=== PATIENT | female | born 1990 | race Caucasian/White ===

== ENCOUNTER 2017-04-03 08:50 | Emergency (ER) | payer OTHER ==
[~2017-04-03] VITALS: Ht 154.9 cm; Wt 72.6 kg
[~2017-04-03 08:50] MED LIST: ACETAMINOPHEN325 M1 PO; CLINDAMYCIN HC300 MG PO; FLOMAX0.4 MG PO; HYDROCODON-ACE1 EA14 PO; IRON18 MG PO; IRON55 MG PO; NAPROXEN500 MG PO; NORCO 5-325 TA1 EACH PO; PRENATAL TABLE1 EAC1 PO; PRENATAL-FOLIC1 EACH PO; PROMETHAZINE HC25 M1 PO; REGLAN10 MG PO; SEPTRA DS TABL1 EACH PO; ZOFRAN ODT4 MG SL
== END 2017-04-03 09:14 | disposition home or self-care (01) ==
LOC: ED 08:50
DX: Z00.8 Encounter for other general examination (principal)

== ENCOUNTER 2019-06-17 17:57 | Inpatient (IN) | payer OTHER ==
[~2019-06-17] VITALS: Ht 154.9 cm; Wt 94.0 kg
--- NOTE | 2019-06-18 09:58 | PR ---
[facility] [address] [facility] [place], [place] [address] Signed Progress Notes IP Datetime Report Generated by CPN: 06/18/2019 09:58 PROGRESS NOTES: [id number] Impression: Normal progression of labor Procedures: Artificial ROM Plan: Continue present management; Anticipate Vaginal Delivery VITAL SIGNS: [id number] Vital Signs: Reviewed; Within Normal Limits EXAM: [id number] Dilatation: 2.5 Effacement: 75 Station: -3 Uterine Contractions: every 2-3 minutes MEMBRANES: [id number] Membrane Status: Ruptured Amniotic Fluid Color: Clear ROM Note: AROM with large amount clear fluid Comments: Patient would like to get up and walk in a bit, probably want Epidural later Fetus A: [id number] FHR Baseline: 140 Variability: Moderate 6-25bpm Accelerations: 15X15 Presentation: Vertex Fetus B: [id number] Signing Physician: Maricruz Vang MD Copies: ~ *Electronically Signed* 06/18/19 0958 MARICRUZ VANG MD PATIENT NAME: LUIS PETE PROGRESS NOTE DATE OF : 89 PHYSICIAN: MARICRUZ VANG MD RPT #: [id number] REPORT IS CONFIDENTIAL AND NOT TO BE RELEASED WITHOUT AUTHORIZATION
--- NOTE | 2019-06-18 16:52 | PR ---
[facility] [address] [facility] [place], [place] [address] Signed Progress Notes IP Datetime Report Generated by CPN: 06/18/2019 16:52 PROGRESS NOTES: [id number] Impression: Slow Progression of Labor Procedures: Intrauterine Pressure Catheter; Scalp Electrode Plan: Continue present management; Augmentation VITAL SIGNS: [id number] Vital Signs: Reviewed; Within Normal Limits EXAM: [id number] Dilatation: 5.0 Effacement: 75 Station: -3 Uterine Contractions: every 2-4 minutes MEMBRANES: [id number] Membrane Status: Ruptured Amniotic Fluid Color: Clear ROM Note: AROM with large amount clear fluid Comments: Pitocin alreadly started for slow progress. Internal monitors applied sicne no change in past about 2 hours. Continue to increase Pitocin per protocol. Fetus A: [id number] FHR Baseline: 140 Variability: Moderate 6-25bpm Accelerations: 15X15 Presentation: Vertex Fetus B: [id number] Signing Physician: Maricruz Vang MD Copies: ~ *Electronically Signed* 06/18/19 1655 MARICRUZ VANG MD PATIENT NAME: JUAN RLUIS PROGRESS NOTE DATE OF : 89 PHYSICIAN: MARICRUZ VANG MD RPT #: [id number] REPORT IS CONFIDENTIAL AND NOT TO BE RELEASED WITHOUT AUTHORIZATION
--- NOTE | 2019-06-18 21:31 | PR ---
[facility] [address] [facility] [place], [place] [address] Signed Progress Notes IP Datetime Report Generated by CPN: 06/18/2019 21:31 PROGRESS NOTES: [id number] Impression: Normal progression of labor Procedures: Intrauterine Pressure Catheter; Scalp Electrode Plan: Continue present management; Anticipate Vaginal Delivery VITAL SIGNS: [id number] Vital Signs: Reviewed; Within Normal Limits EXAM: [id number] Dilatation: 9.5 Effacement: 100 Station: -2 Uterine Contractions: every 2 minutes MEMBRANES: [id number] Membrane Status: Ruptured Amniotic Fluid Color: Clear ROM Note: AROM with large amount clear fluid Comments: Just had Epidural redosed, so comfortable with contractions. Should be able to start pushing soon. Fetus A: [id number] FHR Baseline: 140 Variability: Moderate 6-25bpm Accelerations: 15X15 Presentation: Vertex Fetus B: [id number] Signing Physician: Eron Vang MD Copies: ~ *Electronically Signed* 06/18/192130 ERON VANG MD PATIENT NAME: JUAN RLUIS DURANT PROGRESS NOTE DATE OF : 89 PHYSICIAN: ERON VANG MD RPT #: [id number] REPORT IS CONFIDENTIAL AND NOT TO BE RELEASED WITHOUT AUTHORIZATION
--- NOTE | 2019-06-19 11:28 | PR ---
[facility] [address] [facility] [place] [address] Signed PP Progress Notes Datetime Report Generated by CPN: 06/19/2019 11:28 SUBJECTIVE: [id number] Pain: Within normal limits Nausea/Vomiting: Denies Vital Signs: [id number] Vital Signs: Reviewed; Within Normal Limits Notable Details: PP Hgb/Hct = 8.8/26.4 EXAM: [id number] Abdomen/Uterus: Normal Lochia: Normal Extremities: Normal IMPRESSION/PLAN/PROCEDURES: [id number] Impression: Normal progression Other Impression: PP Anemia Plan: Continue present management Procedures: None Progress Notes: Doing well, without complaint. Signing Physician: Maricruz Vang MD Copies: ~ *Electronically Signed* 06/19/19 1128 MARICRUZ VANG MD PATIENT NAME: LUIS PETE PROGRESS NOTE DATE OF : 89 PHYSICIAN: MARICRUZ VANG MD RPT #: [id number] REPORT IS CONFIDENTIAL AND NOT TO BE RELEASED WITHOUT AUTHORIZATION
--- NOTE | 2019-06-20 12:24 | PR ---
[facility] [address] [facility] [place], [place] [address] Signed PP Progress Notes Datetime Report Generated by CPN: 06/20/2019 12:24 SUBJECTIVE: [id number] Pain: Within normal limits Nausea/Vomiting: Denies Vital Signs: [id number] Vital Signs: Reviewed; Within Normal Limits Notable Details: PP Hgb/Hct = 8.8/26.4 EXAM: [id number] Abdomen/Uterus: Normal Lochia: Normal Extremities: Normal IMPRESSION/PLAN/PROCEDURES: [id number] Impression: Normal progression Other Impression: PP Anemia, Migraine WILKINSON Plan: Discharge Procedures: None Progress Notes: Doing well, had migraine WILKINSON earlier, not related to standing, moving, feeling better now, has Hx WILKINSON's. Ready to go home. Signing Physician: Maricruz Vang MD Copies: ~ *Electronically Signed* 06/20/19 1224 MARICRUZ VANG MD PATIENT NAME: LUIS PETE PROGRESS NOTE DATE OF : 89 PHYSICIAN: MARICRUZ VANG MD RPT #: [id number] REPORT IS CONFIDENTIAL AND NOT TO BE RELEASED WITHOUT AUTHORIZATION
== END 2019-06-20 15:05 | disposition home or self-care (01) | DRG 806 ==
LOC: FBC 06-18 00:02
PROVIDERS: ADMIT Obstetrics & Gynecology
PROC: 10E0XZZ Delivery of Products of Conception, External Approach (ICD-10-PCS; principal; 2019-06-18)
PROC: 0KQM0ZZ Repair Perineum Muscle, Open Approach (ICD-10-PCS; 2019-06-18)
PROC: 10H07YZ Insertion of Other Device into Products of Conception, Via Natural or Artificial Opening (ICD-10-PCS; 2019-06-18)
PROC: 10907ZC Drainage of Amniotic Fluid, Therapeutic from Products of Conception, Via Natural or Artificial Opening (ICD-10-PCS; 2019-06-18)
PROC: 00HU33Z Insertion of Infusion Device into Spinal Canal, Percutaneous Approach (ICD-10-PCS; 2019-06-18)
PROC: 3E0R3BZ Introduction of Anesthetic Agent into Spinal Canal, Percutaneous Approach (ICD-10-PCS; 2019-06-18)
DX: O12.04 Gestational edema, complicating childbirth (principal); O99.354 Diseases of the nervous system complicating childbirth; Z37.0 Single live birth; O69.0XX0 Labor and delivery complicated by prolapse of cord, not applicable or unspecified; Z3A.39 39 weeks gestation of pregnancy; O90.81 Anemia of the puerperium; D64.9 Anemia, unspecified; O21.0 Mild hyperemesis gravidarum; O70.1 Second degree perineal laceration during delivery; G43.909 Migraine, unspecified, not intractable, without status migrainosus; O67.8 Other intrapartum hemorrhage; Z86.19 Personal history of other infectious and parasitic diseases
CPT/HCPCS: 01960; 36415; 85027; J2405; J2590; J2795; J7121

== ENCOUNTER 2019-12-03 08:59 | Emergency (ER) | payer OTHER ==
[~2019-12-03] VITALS: Ht 154.9 cm; Wt 78.9 kg
[2019-12-03] MEDS ORDERED: IBU600 MG PO (09:19)
== END 2019-12-03 11:07 | disposition home or self-care (01) ==
LOC: ED 08:59
DX: S61.511A Laceration without foreign body of right wrist, initial encounter (principal); S61.412A Laceration without foreign body of left hand, initial encounter; F41.9 Anxiety disorder, unspecified; X58.XXXA Exposure to other specified factors, initial encounter
CPT/HCPCS: 99282